=== PATIENT | female | born 1995 | race Caucasian/White ===

== ENCOUNTER → 2024-10-25 | Outpatient (CLI) | payer OTHER ==
[~2024-10-25] VITALS: Ht 157.5 cm; Wt 72.7 kg
[~2024-10-25] MED LIST: HYDROXYZINE HCL25 M1 PO; [UNRECOGNIZED DRUG - OTHER] PO
[2024-10-25 14:24] VITALS: BP 119/73
== END ==
LOC: WOUND 09:42
DX: S61.201D Unspecified open wound of left index finger without damage to nail, subsequent encounter (principal); X58.XXXD Exposure to other specified factors, subsequent encounter